=== PATIENT | female | born 1945 | race Caucasian/White ===

== ENCOUNTER 2016-04-22 10:44 | Inpatient (IN) | payer OTHER, MEDICARE ==
[~2016-04-22] VITALS: Ht 167.6 cm; Wt 87.9 kg
[2016-04-22 10:44] VITALS: BP 116/62; PULSE 57; RESP 18; O2SAT 98
[~2016-04-22 10:44] MED LIST: ASPI-973 PO; ATEN25TA PO; ATOR20TA PO; BUPR150T8 PO; CHOL10008 PO; FLUO20CA25 PO; HYDR25TA4 PO; LEVO100T6 PO; MULT-1018 PO
[2016-04-22] MEDS ORDERED: Ondansetron 2 mg/mL 2 mL Inj IVPUSH PRN ×2 (11:10→13:05)
--- NOTE | 2016-04-22 11:21 | ED.REPORT ---
HPI-Extremity Problem Lower Date of Service Apr 22, 2016 ED Provider: Ritesh Hernandez DO Pt is a 71 year old female who reports to the ER via EMS after a ground level fall complaining of left hip and thigh pain. 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 Pt was physically spinning around to try to regain her balance. After falling, she was able to sit up on the ground but was unable to stand due to pain in hip and leg. Pt described her leg as, "flopping around." Pt c/o associates a tingly sensation in her left foot. She rates her pain at 7/10 severity and describes the pain as "aching but no sharp pains." Nursing Notes Stated Complaint: GLF Chief Complaint: Extremity Trauma Nursing Notes Reviewed: Yes Allergies: Coded Allergies: No Known Drug Allergies (Verified Allergy, Unknown, 01/12/15) Scheduled Aspirin (Aspirin) 81 Mg Tablet 81 MG PO DAILY Atenolol (Atenolol) 25 Mg Tablet 12.5 MG PO DAILY Atorvastatin (Lipitor) 20 Mg Tablet 20 MG PO DAILY Bupropion ER (Wellbutrin SR) 150 Mg Tablet.er 150 MG PO BID Hydrochlorothiazide (Hydrochlorothiazide) 25 Mg Tablet 25 MG PO DAILY Levothyroxine (Levothyroxine) 100 Mcg Tablet 100 MCG PO DAILY Multivitamin (Multi Vitamin Daily) 1 Each Tablet 1 EACH PO DAILY Miscellaneous Medications Calcium Carbonate (Calcium) 600 Mg Tablet 600 MG PO Cholecalciferol (Vitamin D3) (Vitamin D3) 1,000 Unit Tab.chew 1,000 UNIT PO General Time Seen by MD: 11:00 Chief Complaint Leg injury left Hx Obtained From: Patient Arrived By: Ambulance Onset Occurred: Just prior to arrival Symptom Duration: Since onset Caused by: Fall on ground Context: Occurred at: Home injury Location: : Hip left: Thigh left Quality: Aching, Painful Severity: Current: Pain level 7 out of 10 Severity: Maximum: Severe Past Medical History Past Medical History High cholesterol, HTN Past Surgical History Left wrist surgery Family History Noncontributory Smoking History Current Every Day Smoker Social History Alcohol Use: 1-3 per week Drug Use: Denies drug use Other Social History: Good social support, Local resident Ambulatory Status Independent Review of Systems Musculoskeletal: Reports: Extremity pain (left leg ), Joint pain (left hip), Denies: Back pain, Neck pain Neurologic: Reports: Dizziness, Denies: Change LOC, Headache Complete sys rev & neg: except as marked. Cardiovascular: Denies: Chest pain GI: Denies: Abdominal pain Physical Exam Initial Vital Signs Vital Signs (First) Date Time Temp Pulse Resp B/P Pulse Ox O2 Delivery O2 Flow Rate FiO2 04/22/16 10:44 37.1 57 18 116/62 98 Room Air Initial VS: Reviewed General/Constitutional: Well-developed, Well-nourished Head / Eyes: Atraumatic, Normocephalic, PERRL ENT: Mucous membranes moist, Conjunctiva normal, No scleral icterus Neck: Supple, Non-tender, Full range of motion Respiratory: Breath sounds normal, Clear to auscultation, No respiratory distress Cardiovascular: Regular rate & rhythm, Heart sounds normal, Intact distal pulses Abdomen / GI: Soft, Non-tender, No guarding, No rebound, No distention Upper Extremities: Vascular intact, Neuro intact, No swelling, No tenderness Skin: Warm, Dry, No cyanosis Neurologic: Alert, Oriented, Nonfocal Psychiatric: Mood/affect normal, Behavior normal, Normal thought content Lower Extremity / Pelvis / MS: Neurologic intact, Vascular intact Lower Ext Brief Normals: Hip R exam normal, Thigh R exam normal, Knee R exam normal, Leg / calf R exam normal, Ankle R exam normal, Ankle L exam normal, Foot R exam normal, Foot L exam normal Left Hip: Positive: Tenderness present... left leg is shortened and externally rotatated Pain with axial rotation of left leg Pain with range of motion 2+DP pulses Ankle / Foot: Neurologic intact, Vascular intact Back: Inspection NL, Full range of motion, Painless range of motion, Non-tender , No midline vertebral tend, No paraspinal tenderness Interpretation & Diagnostics Lab Results Interpretation Result Diagram: 04/22/16 1230 04/22/16 1230 Test 04/22/16 12:30 White Blood Count 8.4th/mm3 (3.8-10.1) Red Blood Count 4.48mil/mm3 (3.90-5.20) Hemoglobin 13.6g/dL (12.0-15.6) Hematocrit 40.4% (35.0-46.0) Mean Corpuscular Volume 90.2fL (81-100) Mean Corpuscular Hemoglobin 30.4pg (27.0-35.0) Mean Corpuscular Hemoglobin Concent 33.7% (32.0-37.0) Red Cell Distribution Width 13.0% (12.3-15.4) Platelet Count 215bil/L (150-400) Neutrophils (%) (Auto) 78.4% (40-74) Lymphocytes (%) (Auto) 16.5% (14-46) Monocytes (%) (Auto) 4.0% (4-12) Eosinophils (%) (Auto) 0.7% (0-5) Basophils (%) (Auto) 0.2% (0-3) Sodium Level 143mEq/L (134-144) Potassium Level 4.1mEq/L (3.5-5.2) Chloride Level 106mEq/L (97-108) Carbon Dioxide Level 26mmol/L (18-29) Blood Urea Nitrogen 20mg/dL (8-27) Creatinine 0.88mg/dL (0.57-1.00) Estimat Glomerular Filtration Rate 91mL/min (>59) Glucose Level 100mg/dL (60-99) Calcium Level 9.4mg/dL (8.5-10.1) Magnesium Level 2.1mg/dL (1.6-2.6) Total Bilirubin 0.4mg/dL (0.0-1.2) Aspartate Amino Transf (AST/SGOT) 18U/L (0-50) Alanine Aminotransferase (ALT/SGPT) 18U/L (0-32) Alkaline Phosphatase 60U/L (25-165) Total Protein 6.3g/dL (6.4-8.4) Albumin 3.5g/dL (3.4-5.0) Hold Drake Top Tube Received (Received) ECG Interpretation ECG Interpretation: sinus bradycardia Time: 12:23 Interpreted by: ED physician X-Ray Chest Interpretation Chest Xray Interpretation: IMPRESSION: No acute or active disease is seen in the supine portable chest. Dictated by: Zoran Schmitz M.D. on 04/22/2016 at 12:27 Approved by: Zoran Schmitz M.D. on 04/22/2016 at 12:27 View: Portable Interpretation / Wet Read by: Interpret - Radiologist X-Ray Interpretation Xray Interpretation: IMPRESSION: Intertrochanteric fracture of the Left femur Dictated by: Zoran Schmitz M.D. on 04/22/2016 at 12:05 Approved by: Zoran Schmitz M.D. on 04/22/2016 at 12:05 X-Ray Ordered: Femur left Interpretation / Wet Read by: Interpret - Radiologist Re-Eval/Medical Decision Med Decision/Clinical Course Left intertrochanteric femur fracture. Neurovascularly intact. Will be admitted. Source of Hx: Old records Re-Evaluation/Progress : Time of Eval: 12:10 Re-Evaluation/Progress Note: Pt rechecked. Informed pt of diagnosis of fracture and need for admission. Pt understands and agrees with plan for admission. All questions addressed. Consultation #1: Referral / Consult Name: Eric Randhawa MD Consulted With: Surgeon Call Returned at: 12:15 Production Control Pegboard Clerk: Will see patient, Agrees with eval, Agrees with plan Consultation #2: Referral / Consult Name: Saurabh Jefferson MD Consulted With: Hospitalist Call Returned at: 12:57 Production Control Pegboard Clerk: Will see patient, Agrees with eval, Agrees with plan, Accepts admit Counseled Regarding: Diagnosis, Lab results, Need for admission Discharge & Departure Impression: Primary Impression: Fracture of left hip Encounter type: initial encounter Fracture type: closed Qualified Code: S72.002A - Fracture of unspecified part of neck of left femur, initial encounter for closed fracture Disposition: ADMITTED TO HOSPITAL Discharge Condition All VS Reviewed: Yes Condition: Stable Referrals: May Marks MD (PCP) Scribe Attestation Portion of this note were transcribed by Sarika Sibley and Mahi Cuevas. I, Dr. Sonya Azar, personally performed the history, physcial exam, and medical decision- making: I reviewed and confirmed the accuracy for the information in the transcribed note. Signed by: Mahi Cuevas and attila Courtney, 04/19/16 [id number]. copies to: May Marks MD, Timothy S DO Apr 22, 2016 11:21 MAHI CUEVAS Apr 22, 2016 11:59 Sarika Sibley Apr 22, 2016 12:44
[2016-04-22] MEDS ORDERED: 0.9% Sodium Chloride 1,000 ML IV ONE (12:01)
--- NOTE | 2016-04-22 12:07 | DRSVH ---
PROCEDURE: X-RAY LEFT HIP COMPLETE, MINIMUM TWO VIEWS ([id number]) INDICATIONS: trauma/fall/pain TECHNIQUE: 2 views of the hip were acquired. COMPARISON: None. FINDINGS: Bones: There is an intertrochanteric fracture of the left femur with some proximal displacement of a very small amount of the leg and external rotation of the leg. Soft tissues: No suspicious soft tissue calcifications or masses. IMPRESSION: Intertrochanteric fracture of the Left femur Dictated by: Zoran Schmitz M.D. on 04/22/2016 at 12:05 Approved by: Zoran Schmitz M.D. on 04/22/2016 at 12:05
--- NOTE | 2016-04-22 12:29 | DRSVH ---
PROCEDURE: X-RAY CHEST ONE VIEW, PORTABLE ([id number]) INDICATIONS: preop/fall at home/hip fracture TECHNIQUE: One view of the chest was acquired. COMPARISON: None. 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 Lungs and pleura: No pleural effusions or pneumothorax. Lungs are clear. Mediastinum: Mediastinal contours appear normal. Heart size is normal. Bones and chest wall: No suspicious bony lesions. Overlying soft tissues appear unremarkable. IMPRESSION: No acute or active disease is seen in the supine portable chest. Dictated by: Zoran Schmitz M.D. on 04/22/2016 at 12:27 Approved by: Zoran Schmitz M.D. on 04/22/2016 at 12:27
[2016-04-22 12:42] LABS: BASOPHILS % (AUTO) 0.2 % (0-3); EOSINOPHILS % (AUTO) 0.7 % (0-5); Mean Corpuscular Hemoglobin 30.4 pg (27.0-35.0); Mean Corpuscular Volume 90.2 fL (81-100); NEUTROPHILS % (AUTO) 78.4 % (40-74); Platelet Count 215 bil/L (150-400)
[2016-04-22 13:05] VITALS: BP 114/41; PULSE 52; RESP 20; O2SAT 95
[2016-04-22] MEDS ORDERED: hydrALAZINE 20 mg/mL Inj IV PRN (13:05)
[2016-04-22] MEDS ORDERED: Alum-Mag Hydrox-Simeth 30 mL Suspension PO PRN (13:05)
[2016-04-22 13:07] LABS: Magnesium 2.1 mg/dL (1.6-2.6)
--- NOTE | 2016-04-22 13:36 | PCM.HPMED ---
Subjective Date of Service Apr 22, 2016 Primary Provider: Admitting Physician: Saurabh Jefferson MD Primary Care Physician: May Marks MD Attending Physician: Saurabh Jefferson MD Admit Status: From the Emergency Department, Full Admit, Admit to [facility] Team, Non-Telemetry Chief Complaint: Left hip pain History of Present Illness: This is a 71-year-old female who was cleaning some travel up her driveway. 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 She injured her left hip was unable to get up. Her vertigo resolved. No trauma to the head. No other injuries including head pain neck or back pain. She was brought to the emergency department for evaluation and has a left femur intertrochanteric fracture. She denies a history of vertigo. She had no chest pain before during or after. She has not been ill recently. She has no history of osteoporosis from her report but does take vitamin D and calcium. She does have a history of a right wrist fracture. He is scheduled for operative Fracture tomorrow. Review of Systems: She denies any headache. No difficulty with hearing or rhinorrhea cough or sore throat. No fevers or chills. No chest pain palpitations or difficulty breathing. No recent constipation diarrhea blood products and hematuria dysuria. All other systems reviewed and otherwise negative except as noted in history of present illness Allergies Coded Allergies: No Known Drug Allergies (Verified Allergy, Unknown, 01/12/15) Home Medications Synthroid 25 mcgs, vitamin D daily, calcium daily, hydrochlorothiazide 25 mg daily, atenolol 12.5 mg daily PMH 1. Hypertension 2. Hypothyroidism Family History As for hypertension Social History Hx Alcohol Use: Yes ("glass of wine every other day") Hx Substance Use: No Hx Tobacco Use: Yes (6 - 8 CIGS A DAY) Smoking Status: Current Every Day Smoker Living Arrangement: with Family Exam Vital Signs Vital Sign - Last Date Time Temp Pulse Resp B/P Pulse Ox O2 Delivery O2 Flow Rate FiO2 04/22/16 13:05 52 20 114/41 95 Room Air 04/22/16 10:44 37.1 Exam Oriented, no acute distress. Normal skeletal Normal nose and ears Anicteric sclerae, symmetric pupils Oropharynx unremarkable, no droop. Fluent speech. Neck is supple, normal thyroid. No adenopathy. Lungs are clear , normal effort Heart is regular without murmur gallop or rub Abdomen soft nondistended without focal tenderness. Extremities are free of edema good pedal pulses. Joints not swollen or deformed Muscles with normal tone and strength. Cranial nerves are intact She has normal affect. Lab and Diagnostics Result Diagram: 04/22/16 1230 04/22/16 1230 X-Rays, CTs and MRIs Chest x-ray unremarkable Left hip x-ray reveals an intertrochanteric fracture of the femur. Assessment & Plan 1. Ground-level fall. Prior to admit. 2. Transient positional vertigo, prior to admit. Resolved 3. Left femur intertrochanteric fracture, POA. Sinus fluid resuscitation nothing by mouth after midnight. Allergies he has needed. Operative repair with open reduction and internal fixation tomorrow. DVT prophylaxis 4. Hypertension, essential. POA. Usual medications. 5. Hypothyroidism, POA. Usual medications. Patient's full resuscitation, confirmed today She is admitted to inpatient status with an estimated length of stay of 2 nights given the medical complexity of her case and the care required. Pain Evaluation: Adequate Pain Control Resuscitation Status: CPR: Attempt Resuscitation Time spent 40 minutes Saurabh Jefferson MD Apr 22, 2016 13:36
[2016-04-22] MEDS: fentaNYL-PF 50 mCg/mL 2 mL Inj IV PRN ×4 (13:58→23:01)
--- NOTE | 2016-04-22 14:40 | PCM.CONORT ---
Subjective Date of Surgery: Apr 22, 2016 Surgeon Admitting Provider:Saurabh Jefferson MD Attending Provider:Saurabh Jefferson MD Primary Care Physician:May Marks MD Other Provider: Reason for Consultation: Left hip pain Allergy Allergies: Coded Allergies: No Known Drug Allergies (Verified Allergy, Unknown, 01/12/15) Medications Blood Thinners: Aspirin Aspirin (Aspirin) 81 Mg Tablet 81 MG PO DAILY (Reported) Last Taken: Unknown Dose on 04/22/16 09 Atenolol (Atenolol) 25 Mg Tablet 12.5 MG PO DAILY (Reported) Last Taken: Unknown Dose on 04/22/16 09 Atorvastatin (Lipitor) 20 Mg Tablet 20 MG PO DAILY (Reported) Last Taken: Unknown Dose on 04/21/161999 Bupropion ER (Wellbutrin SR) 150 Mg Tablet.er 150 MG PO BID (Reported) Last Taken: Unknown Dose on 04/22/16 09 Calcium Carbonate (Calcium) 600 Mg Tablet 600 MG PO (Reported) Last Taken: Unknown Dose on 04/22/16 09 Cholecalciferol (Vitamin D3) ( Vitamin D3) 1,000 Unit Tab.chew 1,000 UNIT PO (Reported) Last Taken: Unknown Dose on 04/22/16 0900 Hydrochlorothiazide ( Hydrochlorothiazide) 25 Mg Tablet 25 MG PO DAILY (Reported) Last Taken: Unknown Dose on 04/22/16 0800 Levothyroxine (Levothyroxine) 100 Mcg Tablet 100 MCG PO DAILY (Reported) Last Taken: Unknown Dose on 04/22/16 0700 Multivitamin (Multi Vitamin Daily) 1 Each Tablet 1 EACH PO DAILY (Reported) Last Taken: Unknown Dose on 04/22/16 0900 Discontinued Medications Atenolol (Atenolol) 25 Mg Tablet 25 MG PO DAILY (Reported) Fluoxetine (Fluoxetine) 20 Mg Capsule 20 MG PO DAILY (Reported) History HEENT History: Denies:: Abnormal Airway Difficult Intubation Dysphagia Hearing Problem Hx of Heart Problems?: No Cardiovascular History: Positive for:: Hypertension Denies:: AICD Atrial Fibrillation Pacemaker Valvular Heart Disease Hx of Respiratory Problem?: No Respiratory History: Denies:: Asthma COPD Cough Hemoptysis Pneumonia Tuberculosis Neurological History: Denies:: CVA Hx of GI Problems?: Yes Gastrointestinal History: Denies:: Cirrhosis Diverticulitis Gastroesphageal Reflux Hiatal Hernia Rectal Bleeding Female Hx: Denies:: Currently Other History/Comment Debo Boateng is a 71-year-old female patient who presents to the ER for their left hip with ongoing symptoms. The patient states that their pain is a sharp in nature and mild/moderate in severity localized in the hip without radiation. This has been progressing over the past 1 day after she had a bout of vertigo while cleaning in her driveway. She reports no loss of consciousness but fell to the ground with subsequent left hip pain. Moreover, the pain is exacerbated by activities, especially with all movement. Rest seems to improve the symptoms. There is no reports numbness, tingling, or weakness to the affected distal lower extremity. There is no known history of hip problems as a child/ adolescent such as SCFE, Perthes, dysplasia, OI, or ligamentous laxity, or prior hip pain. The patient denies any fever, chills, nausea, vomiting, chest pain, shortness of breath, or calf tenderness. Work/hobbies/sports include: Accompanied by her son and Hx Surgeries?: Yes (LEFT WRIST SURGERY) Hx Any Other Health Problems?: No Hx Diabetes: No Hx Alcohol Use: Yes ("glass of wine every other day")Hx Substance Use: No Smoking Status: Current Every Day Smoker Have You Smoked inLast 12 mo: YesApprox How Many Cigarettes/day: 7 cigs/day Objective Exam Vital Signs & I/O Vital Sign- Last 8 Hours Date Time Temp Pulse Resp B/P Pulse Ox O2 Delivery O2 Flow Rate FiO2 04/22/16 13:05 52 20 114/41 95 Room Air 04/22/16 10:44 37.1 57 18 116/62 98 Room Air Lab & Micro Results Laboratory Tests Test 04/22/16 12:30 04/22/16 14:23 White Blood Count 8.4th/mm3 (3.8-10.1) Red Blood Count 4.48mil/mm3 (3.90-5.20) Hemoglobin 13.6g/dL (12.0-15.6) Hematocrit 40.4% (35.0-46.0) Mean Corpuscular Volume 90.2fL (81-100) Mean Corpuscular Hemoglobin 30.4pg (27.0-35.0) Mean Corpuscular Hemoglobin Concent 33.7% (32.0-37.0) Red Cell Distribution Width 13.0% (12.3-15.4) Platelet Count 215bil/L (150-400) Neutrophils (%) (Auto) 78.4% (40-74) Lymphocytes (%) (Auto) 16.5% (14-46) Monocytes (%) (Auto) 4.0% (4-12) Eosinophils (%) (Auto) 0.7% (0-5) Basophils (%) (Auto) 0.2% (0-3) Sodium Level 143mEq/L (134-144) Potassium Level 4.1mEq/L (3.5-5.2) Chloride Level 106mEq/L (97-108) Carbon Dioxide Level 26mmol/L (18-29) Blood Urea Nitrogen 20mg/dL (8-27) Creatinine 0.88mg/dL (0.57-1.00) Estimat Glomerular Filtration Rate 91mL/min (>59) Glucose Level 100mg/dL (60-99) Calcium Level 9.4mg/dL (8.5-10.1) Magnesium Level 2.1mg/dL (1.6-2.6) Total Bilirubin 0.4mg/dL (0.0-1.2) Aspartate Amino Transf (AST/SGOT) 18U/L (0-50) Alanine Aminotransferase (ALT/SGPT) 18U/L (0-32) Alkaline Phosphatase 60U/L (25-165) Total Protein 6.3g/dL (6.4-8.4) Albumin 3.5g/dL (3.4-5.0) Hold Drake Top Tube Received (Received) Hold Urine Received (Received) Result Diagram: 04/22/16 1230 04/22/16 1230 Review of Systems: Constitutional: Negative, except as otherwise mentioned in the history above. Ophthalmologic: Negative, except as otherwise mentioned in the history above. Cardiovascular: Negative, except as otherwise mentioned in the history above. Respiratory: Negative, except as otherwise mentioned in the history above. Gastrointestinal: Negative, except as otherwise mentioned in the history above. Genitourinary: Negative, except as otherwise mentioned in the history above. Musculoskeletal: Negative, except as otherwise mentioned in the history above. Neurological: Negative, except as otherwise mentioned in the history above. Psychiatric: Negative, except as otherwise mentioned in the history above. Hematologic/Lymphatic: Negative, except as otherwise mentioned in the history above. Allergic/Immunologic: Negative, except as otherwise mentioned in the history above. H&P Surgical Exam Exam Musculoskeletal: CONST: WD,WN, NAD, A+OX3 OCULAR: EOMI, no conjunctivitis/icterus ENT: no deformities, scars or lesions CARDIAC: Pulse is regular. No cyanosis,clubbing,edema RESP: regular,unlabored MSK: normal light touch SPN/DPN/TN distributions. 4+/5 DF/PF/Inv/Ev, 2+ DP Left HIP - scars.+ swelling, - erythema - atrophy or asymmetry. TTP GT, alignment Leg is shortened, external rotated ROM logroll-painful Strength Deferred Negative Homans Additional Information X-rays of the left hip demonstrate Displaced intertrochanteric left hip fracture H&P Preop Plan Impression left displaced intertrochanteric hip fracture Problems: Risks & Benefits * We have reviewed the risks and benefits as well as the alternatives to surgery. All questions were answered to the patient's satisfaction and a counseling note to that effect. The patient has provided informed consent. * I have counseled the patient regarding the deleterious effects that smoking during the perioperative period can have upon wound healing, infection rates, and the overall rate of complications. Plan plan for left hip CRIMN tomorrow NPO after midnight medical management per primary appreciate medical optimization for surgery on 04/23/16 pain meds as needed NWB LLE DVT prophylaxis with PERLITA/SCDs please keep elevated please call with questions Please keep the affected extremity elevated when possible. You may use ice and/or heat as needed for comfort. All questions and concerns were addressed. Please feel free to call with any further questions, comments, and/or concerns. Eric Randhawa MD Apr 22, 2016 14:40
[2016-04-22] MEDS: 0.9% Sodium Chloride 1,000 ML IV SCH ×2 (14:47→21:02)
[2016-04-22] MEDS ORDERED: ATEN25TA PO (14:48)
[2016-04-22] MEDS ORDERED: CALC600T12 PO (14:51)
[2016-04-22 15:01] VITALS: BP 94/58; PULSE 52; RESP 19; O2SAT 96
[2016-04-22] MEDS: Heparin 5,000 Unit/mL Inj SUBQ SCH (16:57)
[2016-04-22 17:07] LABS: APPEARANCE,URINE CLEAR (CLEAR,HAZY); COLOR,URINE YELLOW (YELLOW); OCCULT BLOOD,URINE TRACE (NEGATIVE); PH,URINE 5.5 (5.0-8.0); UROBILINOGEN,URINE NORMAL (NORMAL)
--- NOTE | 2016-04-22 19:20 | NUR ---
Arrival Pt came from ED, she is alert and oriented, she had fallen in her driveway earlier today, when she was getting the Saturday paper, pt has broken her left hip. She is to have surgery tomorrow morning so NPO after midnight.
[2016-04-22 20:26] VITALS: BP 99/60; PULSE 52; RESP 19; O2SAT 90
[2016-04-22] MEDS ORDERED: HYDROmorphone 2 mg/mL Inj IVPUSH PRN (23:40)
[2016-04-23] VITALS (10 sets, daily range): BP systolic 116–140; BP diastolic 50–74; PULSE 64–85; RESP 16–20; O2SAT 91–98
[2016-04-23] MEDS ORDERED: HYDROmorphone 1 mg/mL Inj ONE ×4 (01:10→08:59)
[2016-04-23] MEDS: Heparin 5,000 Unit/mL Inj SUBQ SCH ×3 (01:15→16:30)
[2016-04-23] MEDS: HYDROmorphone 2 mg/mL Inj IVPUSH PRN ×3 (01:16→06:11)
--- NOTE | 2016-04-23 05:22 | NUR ---
Pain pain not well controlled with Fentanyl, pt reported that it seemed to work for awhile but not enough to allow for sleep; morphine had been tried in ED without good result. Obtained new order for 1-2 mg Dilaudid IV Q 2hours, 1 mg appears to provide adequate relief for sleep, lasted 2 hours. Pt remains alert and respirations >14/ minute. NPO since midnight for expected surgery. Hourly rounding ongoing.
[2016-04-23] MEDS: 0.9% Sodium Chloride 1,000 ML IV SCH ×4 (06:12→20:46)
[2016-04-23 06:56] LABS: BASOPHILS % (AUTO) 0.2 % (0-3); EOSINOPHILS % (AUTO) 0.6 % (0-5); MONOCYTES % (AUTO) 5.9 % (4-12); Mean Corpuscular Hemoglobin 30.1 pg (27.0-35.0); Platelet Count 182 bil/L (150-400)
[2016-04-23] MEDS: buPROPion SR 150 mg ER12 Tablet PO SCH ×2 (08:30→18:11)
[2016-04-23] MEDS ORDERED: fentaNYL-PF 50 mCg/mL 2 mL Inj ONE (09:03)
[2016-04-23] MEDS ORDERED: HYDROmorphone 2 mg/mL Inj ONE (09:03)
[2016-04-23] MEDS: HYDROmorphone 1 mg/mL Inj IVPUSH PRN ×2 (11:19→17:11)
[2016-04-23] MEDS ORDERED: Lactated Ringer's 1,000 ML IV ONE ×2 (12:18→13:36)
--- NOTE | 2016-04-23 12:38 | NUR ---
Off unit for surgery Pt to OR at 1237. Dr. Randhawa at bedside signing consent and answering family's questions. Pain well controlled at this time. Denies nausea.
--- NOTE | 2016-04-23 13:26 | PCM.HPANE ---
Patient Data Date of Service: Apr 23, 2016 Surgeon Admitting Provider:Saurabh Jefferson MD Attending Provider:Saurabh Jefferson MD Primary Care Physician:May Marks MD Other Provider: Reason for Visit Lt Hip Fx Ht/WT & BMI Height (Feet): 5 Height (Inches): 6.00 Weight (Kilograms): 87.900 Body Mass Index 31.14 Allergies Coded Allergies: No Known Drug Allergies (Verified Allergy, Unknown, 01/12/15) Past Anesthesia History Anesthesia History: Denies:: Abnormal Airway, Anesthesia Reactions, Difficult Intubation Diabetes History Hx Diabetes?: No MRSA MRSA: No Medications Blood Thinner: Aspirin Hypertension Medication: Yes Home Meds Incl Beta Zander: Yes Date Beta Zander Taken: Apr 22, 2016 Time Beta Zander Taken: 10:00 Reported Medications Calcium Carbonate (Calcium)600 Mg Morega248 Mg PO 04/22/16 Atenolol 25 Mg Mtgynn59.5 Mg PO DAILY #30 TABLET Ref 0 04/22/16 Bupropion ER (Wellbutrin SR)150 Mg Tablet.er150 Mg PO BID Ref 0 01/11/15 Cholecalciferol (Vitamin D3) (Vitamin D3)1,000 Unit Tab.chew1,000 Unit PO 01/11/15 Multivitamin (Multi Vitamin Daily)1 Each Tablet1 Each PO DAILY 30 Days Ref 0 01/11/15 Levothyroxine 100 Mcg Biccgh656 Mcg PO DAILY For Thyroid Replacement Ref 0 01/11/15 Hydrochlorothiazide 25 Mg Yjutok40 Mg PO DAILY 30 Days Ref 0 01/11/15 Aspirin 81 Mg Rdkfln87 Mg PO DAILY Ref 0 01/11/15 Atorvastatin (Lipitor)20 Mg Glupba85 Mg PO DAILY Ref 0 01/11/15 Discontinued Reported Medications Fluoxetine 20 Mg Pmrpycv87 Mg PO DAILY Ref 0 01/11/15 Atenolol 25 Mg Vmobnw77 Mg PO DAILY #30 TABLET Ref 0 01/11/15 History History of ENT Problems?: No HEENT History: Positive for:: Glaucoma Denies:: Abnormal Airway Cataracts Difficult Intubation Dysphagia Hearing Problem Sinus Problem Hx of Heart Problems?: Yes Cardiovascular History: Positive for:: Hypertension Denies:: AICD Atrial Fibrillation Cardiac Surgery Chest Pain Congestive Heart Failure Edema Heart Murmur Irregular Heartbeat Pacemaker Thrombophlebitis Valvular Heart Disease Hx of Respiratory Problem?: Yes (smoker 7 cigarettes) Respiratory History: Denies:: Asthma COPD Chest Surgery Cough Dyspnea Emphysema Hemoptysis Pneumonia Tuberculosis Hx Neurologic Problems?: No Neurological History: Denies:: Alzheimer's Disease CVA Dementia Dizziness Headaches Parkinson's Disease Seizures Hx of GI Problems?: No Gastrointestinal History: Denies:: Cirrhosis Diverticulitis Gastroesphageal Reflux Gastrointestinal Bleeding Heartburn Hepatitis Hiatal Hernia Rectal Bleeding Hx of Problems?: No Genitourinary History: Denies:: HX of Hemodialysis Kidney Stones Urinary Tract Infection HX of Peritoneal Dialysis: No Female Hx: Denies:: Currently Problems with Breasts? Hx Musculoskeletal Problems?: No Musculoskeletal History: Denies:: Back Injury Joint Replacement Musculoskeletal Trauma Hx of Psycho/Social Problems?: No Psycho Social History: Denies:: Anxiety Bipolar Disorder Hx Depression Suicide Attempt Hx Surgeries?: No Hx Any Other Health Problems?: Yes Other History: Positive for:: Thyroid Disease Denies:: Cancer History Blood Transfusions: Positive for:: Accept Blood Products? Denies:: Blood Transfusions Hx Diabetes: No Hx Alcohol Use: Yes (Glass of red wine every other night)Hx Substance Use: No Smoking Status: Current Every Day Smoker Have You Smoked inLast 12 mo: YesApprox How Many Cigarettes/day: 7 Stop/Bang Treated for Sleep Apnea?: No Do You Have a CPAP Machine?: No S-Snoring: Do You Snore Loudly: No T-Tired: feel tired, fatigued: No O-Obsered: Observed not breath: No P-Blood Pressure: treated: Yes B- Body Mass Index > 35 kg/m2: No A- Age over 50: Yes N- Neck Large Circumference: No G- Gender Male: No AMRIANA Total Score: 1 Risk Assessment Category Category 1A: Patient has history of documented sleep apnea, and HAS NOT received any narcotic, sedative or anesthesia administration during this stay. Category 1B: Patient has history of documented sleep apnea, and HAS received any narcotic , sedative or anesthesia administration during this stay Category 2: Patient has SUSPECTED Obstructive Sleep Apnea, and HAS received any narcotic , sedative or anesthesia administration during this stay. Category 3: Patient has SUSPECTED Obstructive Sleep Apnea and HAS NOT received narcotic, sedative or anesthesia administration during this stay. Category 4: Outpatient in Procedural Areas with known sleep apnea or who screen positive for High Risk via the STOP/BANG questionnaire. Exam Exam Vital Signs Vital Signs Date Time Temp Pulse Resp B/P Pulse Ox O2 Delivery O2 Flow Rate FiO2 04/23/16 09:52 37.1 65 18 118/65 92 Nasal Cannula 2.00 04/23/16 05:43 37.6 77 18 116/63 92 Nasal Cannula 2.00 General Appearance: Alert, Oriented X3, Cooperative HEENT/AIRWAY: MP 2 Lungs: Clear to Auscultation Heart: Exam Unremarkable Meds/Labs/Diagnostics Admission Meds Current Medications Heparin Sodium (Porcine) (Heparin Inj) 5,000 unit Q8 SUBQ Last administered on 04/23/16 01:15; Start 04/22/16 at 16:30 Hydromorphone HCl (Dilaudid Inj) 1 mg STK-MED ONCE .ROUTE Last administered on 04/23/16 09:02; Start 04/23/16 at 08:59; Stop 04/23/16 at 09:00; Status DC Labs Test 04/22/16 12:30 04/22/16 14:15 04/22/16 14:23 04/23/16 06:05 Magnesium Level 2.1mg/dL (1.6-2.6) Hold Drake Top Tube Received (Received) Urine Color Yellow (YELLOW) Urine Appearance Clear (CLEAR,HAZY) Urine pH 5.5 (5.0-8.0) Urine Specific [place] 1.020 (1.003-1.035) Urine Protein Negativemg/dL (NEG,TRACE) Urine Glucose (UA) Negativemg/dL (NEGATIVE) Urine Ketones Negativemg/dL (NEGATIVE) Urine Occult Blood Trace (NEGATIVE) Urine Nitrite Negative (NEGATIVE) Urine Bilirubin Negative (NEGATIVE) Urine Urobilinogen Normalmg/dL (NORMAL) Urine Leukocyte Esterase Negative (NEGATIVE) Urine RBC 0-2/hpf (0-2) Urine WBC 0-5/hpf (0-5) Urine Epithelial Cells Occasional/hpf (NONE-MOD) Urine Crystals None seen (NONE SEEN) Urine Bacteria None/hpf (NONE-FEW) Urine Hyaline Casts None/lpf (NONE) Urine Granular Casts None seen (NONE SEEN) Urine Waxy Casts None seen (NONE SEEN) Urine Red Blood Cell Casts None seen (NONE SEEN) Urine White Blood Cell Casts None seen (NONE SEEN) Urine Mucus None seen (None Seen) Urine Trichomonas None seen (NONE SEEN) Urine Yeast None (NONE SEEN) Urinalysis Comment None Urine Culture Reflexed Not indicated Hold Urine Received (Received) White Blood Count 6.6th/mm3 (3.8-10.1) Red Blood Count 3.99mil/mm3 (3.90-5.20) Hemoglobin 12.0g/dL (12.0-15.6) Hematocrit 36.3% (35.0-46.0) Mean Corpuscular Volume 91.0fL (81-100) Mean Corpuscular Hemoglobin 30.1pg (27.0-35.0) Mean Corpuscular Hemoglobin Concent 33.1% (32.0-37.0) Red Cell Distribution Width 13.1% (12.3-15.4) Platelet Count 182bil/L (150-400) Neutrophils (%) (Auto) 68.0% (40-74) Lymphocytes (%) (Auto) 25.1% (14-46) Monocytes (%) (Auto) 5.9% (4-12) Eosinophils (%) (Auto) 0.6% (0-5) Basophils (%) (Auto) 0.2% (0-3) Sodium Level 137mEq/L (134-144) Potassium Level 3.8mEq/L (3.5-5.2) Chloride Level 100mEq/L (97-108) Carbon Dioxide Level 26mmol/L (18-29) Blood Urea Nitrogen 15mg/dL (8-27) Creatinine 0.79mg/dL (0.57-1.00) Estimat Glomerular Filtration Rate 103mL/min (>59) Glucose Level 109mg/dL (60-99) Calcium Level 8.5mg/dL (8.5-10.1) Total Bilirubin 0.5mg/dL (0.0-1.2) Aspartate Amino Transf (AST/SGOT) 14U/L (0-50) Alanine Aminotransferase (ALT/SGPT) 15U/L (0-32) Alkaline Phosphatase 53U/L (25-165) Total Protein 5.5g/dL (6.4-8.4) Albumin 3.4g/dL (3.4-5.0) Plan Impression Patient chart reviewed, patient interviewed and anesthestic plan with risks, benefits, and alternatives discussed, and informed consent obtained. ASA Physical Status: ASA2 Mod Systemic Disease Anesthetic Plan: SAB Bene/Risks/Altern/Consents: Yes HP Complete Prior to Induction: Yes Robbie Fernandez MD Apr 23, 2016 13:04
[2016-04-23] MEDS ORDERED: Propofol 10,000 mCg/mL 20 mL Inj ONE (13:48)
[2016-04-23] MEDS ORDERED: Ondansetron 2 mg/mL 2 mL Inj ONE (13:48)
[2016-04-23] MEDS ORDERED: Labetalol 5 mg/mL 20 mL Inj ONE (13:48)
[2016-04-23] MEDS ORDERED: Albuterol HFA 60 Puff 8 Gm Inhaler INHALATION ONE (13:48)
[2016-04-23] MEDS ORDERED: EPHEDrine/NS 5 mg/mL 5 mL Syringe ONE (13:48)
[2016-04-23] MEDS ORDERED: Glycopyrrolate 0.2 mg/mL 5 mL Inj ONE (13:48)
[2016-04-23] MEDS ORDERED: Phenylephrine/NS 100 mCg/mL 10 mL Syringe IVPUSH ONE (13:48)
--- NOTE | 2016-04-23 14:45 | NUR ---
Social Work Initial Assessment Attempted: SW attempted to meet with patient at bedside to conduct initial assessment. Patient currently off unit in surgery at this time. Patient is a 71 year old male admitted on 04/22/16 for Lt hip fracture. Patient payer as [employer] and Medicare. Patient listed PCP as MD Marks. Following surgery, SW to follow for discharge related needs. Possible SNF placement following surgery may benefit patient. SW to follow. PLAN: Discharge plan in progress. Possible SNF, pending clinical course and initial assessment Maryjane PRECIADO
[2016-04-23] MEDS ORDERED: Bacitracin 50,000 unit Inj IRRIGATION ONE (14:55)
[2016-04-23] MEDS ORDERED: Ropivacaine-PF 0.5% 30 mL Inj INJ ONE (14:56)
[2016-04-23] MEDS ORDERED: Magnesium Hydroxide 10 mL Oral Concentration PO PRN (15:40)
[2016-04-23] MEDS ORDERED: HYDROmorphone 1 mg/mL Inj IVPUSH PRN ×2 (15:40→16:30)
[2016-04-23] MEDS ORDERED: Ondansetron 2 mg/mL 2 mL Inj IVPUSH PRN ×2 (15:40→16:30)
[2016-04-23] MEDS ORDERED: Sodium Biphos-Phos 133 mL Enema RECTAL PRN (15:40)
[2016-04-23] MEDS ORDERED: HYDROcodone-APAP 5-325 mg Tablet PO PRN (15:40)
[2016-04-23] MEDS ORDERED: Polyethylene Glycol (PEG) 17 Gm Powder PO PRN (15:40)
[2016-04-23] MEDS ORDERED: diphenhydrAMINE 25 mg Capsule PO PRN (15:40)
--- NOTE | 2016-04-23 15:52 | PCM.ORTHOP ---
Orthopedic Operative Report Date of Service: Apr 23, 2016 Pre Operative Diagnosis Left hip fracture Post Operative Diagnosis Left hip fracture Procedure Left hip closed reduction intramedullary nailing Surgeon Surgeon: Eric Randhawa Assistants: Nurys Murry Indication for Procedure Left hip fracture Findings Left Intertrochanteric hip fracture with subtrochanteric extension Details of Procedure Implant: Biomet Affixus Nail 11 mm x 330 mm Indications: This is Debo Boateng who is status post left intertrochanteric hip fracture with subtrochanteric extension. The risks versus benefits of open reduction and internal fixation were discussed with the patient in detail. The patient voiced understanding of the risks and agreed to proceed. The risks discussed were pain, bleeding, infection, damage to neurovascular structures, failure of procedure, need for further procedures, loss of limb function, loss of limb, heart attack, stroke, and . Verbal and written consent were obtained. Description of Operation: The patient was brought to the operating room. Patient name and surgical site were confirmed. Preoperative antibiotics were given. General anesthesia was administered. The patient was placed supine on the fracture table in the standard fashion. All bony prominences were well padded. Traction was applied to the operative leg and the fracture was closed reduced under C-arm guidance. The leg and hip were then prepped and draped in the usual sterile fashion. A small longitudinal incision was made proximal to the greater trochanter. Subcutaneous dissection was bluntly performed down to the tip of the greater trochanter. A 3.2 mm guide pin was then placed through the tip of the greater trochanter and into the femoral canal under fluoroscopic guidance. This was checked in both AP and lateral views. This pin was then over-reamed with a 17 mm reamer. The ball tipped guide wire was placed into the medullary canal and advanced into the center of the distal metaphysis. The guide wire was then over-reamed in 0.5 mm increments until bony chatter was achieved at the isthmus. A tire gauge was used to determine the length of the nail. The nail implant was loaded onto the insertion jig and then gently malleted into position over the guide wire. The fracture was well reduced as confirmed with C-arm in AP and lateral views. The guide was removed. The guide pin for the hip screw was inserted to a point within 25 mm tip-to-apex distance on AP and lateral views. The size was measured at 100 mm. A hip screw size was selected along with a 100 mm compression screw. The lateral cortex was drilled for the compression screw. The guide pin was then overdrilled and the hip screw was inserted with clear compression at the fracture once the compression screw inserted and engaged. The traction was removed and orthogonal views with fluoroscopy determined reduction of our fracture with appropriate placement of hip screw centered with a tip-to-apex distance less than 25 mm. The distal interlocking screw was then inserted in the standard fashion using the perfect [place] technique under C-arm guidance. All wounds were thoroughly irrigated by bulb irrigation. Hemostasis was obtained with electrocautery. The fascia was closed with 0 Vicryl suture. The subcutaneous space was closed with interrupted 2-0 Vicryl suture. The skin was closed with interrupted george. Hard copy radiographs confirmed adequate reduction and placement of hardware. The patient was extubated without difficulty and transferred to the PACU in stable condition. I was present and scrubbed for the entire procedure. METER MECHANIC SURGEON: During the operation, the services of physician surgical nurse were medically indicated and necessary to provide exposure of the operative site for the surgical procedure and to maintain the limb in a proper position to carry out the operation safely and efficiently. Without the qualified licensed nursing assistant being present, it would have extended the operative procedure and made the procedure technically more difficult to perform. You may partial weightbear at 25%. PT/OT will be ordered. Return to clinic in 2 weeks with a PA with 2 view x-rays and staple/suture removal with Steri-Strips application. You may get your wound wet at that time. You may advance weightbearing to 50% if you are able to tolerate and follow-up with me in 4 weeks thereafter with additional x-rays 2 views. We will progress weightbearing to full once radiographic healing noted at 6-10 weeks. Please keep the affected extremity elevated when possible. You may use ice and/or heat as needed for comfort. All questions and concerns were addressed. Please feel free to call with any further questions, comments, and/or concerns. Grafts, Implants: Implants-See Implant Record Complications There were no periprocedural complications identified. Condition Stable Anesthetic Administered: GA Catheters: None Output, Estimated Blood Loss: 20 Blood Admin during surgery: No Surgical Cast or Splint: Other Surgical Specimen Removed: No Specimen sent to Pathology: No copies to: Eric Randhawa MD, Christopher L MD Apr 23, 2016 15:52
--- NOTE | 2016-04-23 15:54 | PCM.ANEP2 ---
Post Anesthesia Evaluation ASA/CMS Post Anesthesia Date of Service: Apr 23, 2016 VS in Patient's Normal Range?: Yes Resp Stable; Airway Patent?: Yes CV Function & Hydration Stable: Yes Mental Status Recovered?: Yes Pain control Satisfactory?: Yes N/V Control Satisfactory?: Yes Robbie Fernandez MD Apr 23, 2016 15:54
--- NOTE | 2016-04-23 15:54 | PCM.ANEP1 ---
Post Anesthesia Phase 1 PACU Phase 1 Assessment Date of Service: Apr 23, 2016 Vital Signs Vital Signs Date Time Temp Pulse Resp B/P Pulse Ox O2 Delivery O2 Flow Rate FiO2 04/23/16 09:52 37.1 65 18 118/65 92 Nasal Cannula 2.00 Anesthetic Administered: GA Level of Alertness: Sleepy, easy to arouse ROBLERO's with Equal Strength: Yes Pain: Yes (low but low) Nausea or Vomiting: No Oxygen Delivery: Simple Mask Summary During removal of LMA, noted significant loose front lower incisors. No evidence of recent trauma and LMA insertion/removal were without trauma or resistance. When patient had recovered from anesthesia, she commented that her lower teeth were chronically loose. I don't think that any trauma was done with LMA insertion/removal and that this is likely her baseline, though see denied loose teeth during my preop history. She does have significant tooth decay and evidence of multiple lost teeth. Robbie Fernandez MD Apr 23, 2016 15:54
[2016-04-23] MEDS ORDERED: Lactated Ringer's 1,000 ML IV SCH (16:27)
[2016-04-23] MEDS ORDERED: Lactated Ringer's 500 ML IV PRN (16:27)
[2016-04-23] MEDS ORDERED: fentaNYL-PF 50 mCg/mL 2 mL Inj IVPUSH PRN (16:30)
[2016-04-23] MEDS ORDERED: Labetalol 5 mg/mL 4 mL Inj IV PRN (16:30)
[2016-04-23] MEDS ORDERED: Atropine 0.4 mg/mL Inj IVPUSH PRN (16:30)
[2016-04-23] MEDS ORDERED: MetoCLOpramide 5 mg/mL 2 mL Inj IVPUSH PRN (16:30)
[2016-04-23] MEDS ORDERED: EPHEDrine Sulfate 50 mg/mL Inj IVPUSH PRN (16:30)
[2016-04-23] MEDS ORDERED: hydrALAZINE 20 mg/mL Inj IVPUSH PRN (16:30)
[2016-04-23] MEDS ORDERED: Phenylephrine 10,000 mCg/mL Inj IVPUSH PRN (16:30)
--- NOTE | 2016-04-23 17:26 | PCM.PNMED ---
Subjective Date of Service Apr 23, 2016 Subjective reports left hip pain. denies any other issues/complaints Exam Vital Signs Vital Sign - Last Date Time Temp Pulse Resp B/P Pulse Ox O2 Delivery O2 Flow Rate FiO2 04/23/16 16:05 85 20 130/68 91 Nasal Cannula 3 04/23/16 15:36 36.9 Intake and Output 04/22/16 04/22/16 04/23/16 Cumulative From/Thru 15:00 23:00 07:00 04/22/16 10:44 - 04/23/16 06:22 Intake Total 1000 ml 400 ml 1666 ml 3066 ml Output Total 550 ml 550 ml 1100 ml Balance 1000 ml -150 ml 1116 ml 1966 ml Intake Oral 400 ml 200 ml 600 ml IV Total 1000 ml 1466 ml 2466 ml Output Urine Total 550 ml 550 ml 1100 ml # Bowel Movements 0 0 General: Alert, Cooperative, No Acute Distress Eyes: Scleral Anicteric Mouth: Mucous Membr Moist/[place] Neck: Supple Chest & Lungs: Chest Wall Normal, Clear to auscultation & percussion Cardiovascular: Regular Rate/Rhythm Abdomen: Non-tender, Non-distended, Normoactive bowel tones, Soft Extremities: No cyanosis/clubbing/edma bilat Neurological: Grossly Neurologically Intact, Normal Speech IVs and Medications Medications Reviewed: Medications were reviewed in detail Lab and Diagnostics Result Diagram: 04/23/1660404/23/16604 X-Rays, CTs and MRIs Chest x-ray unremarkable Left hip x-ray reveals an intertrochanteric fracture of the femur. Assessment & Plan 71-year-old female with history of HTN and hypothyroidism who was cleaning her driveway. 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 She injured her left hip was unable to get up. # Acute ground-level fall with resulting acute left femur intertrochanteric fracture. poa - appreciate ortho consult. will f/u w/ recs - plan for surgery today - c/w supportive care # Transient positional vertigo, prior to admit. Resolved - PT post surgery # Hypertension, essential, chronic. stable - c/w home dose Atenolol - hold HCTZ for now - Hydralazine prn # Hypothyroidism. chronic - c/w home med # Depression. chronic. stable - c/w home dose Wellbutrin Dispo: 3-4 days VTE Mechanical Devices: Intermittant Pneumatic CD Resuscitation Status: CPR: Attempt Resuscitation Quoc Mayer Apr 23, 2016 17:26
--- NOTE | 2016-04-23 18:44 | NUR ---
Return from OR to 1026 Pt returned from OR at 1630, alert and oriented but tearful with no complaints other than "feeling wierd". Ortho extremity is warm and peripheral pulses palpable; neuro checks unremarkable. Family at bedside. Pain 6/10 mostly in her low back, medicated with 1mg of Dilaudid and placed on CPOx for safety. SCD's on. No drains, lloyd patent and draining to gravity. Island dressing x2 on L hip are CDI with no drainage. Pt tolerating PO intake and denies nausea. Report taken from NICK Ramey.
[2016-04-23] MEDS: Senna-Docusate 8.6-50 mg Tablet PO SCH (20:55)
[2016-04-24 00:15] VITALS: BP 138/77; PULSE 73; RESP 20; O2SAT 94
[2016-04-24] MEDS: Heparin 5,000 Unit/mL Inj SUBQ SCH (00:21)
[2016-04-24] MEDS: 0.9% Sodium Chloride 1,000 ML IV SCH (05:04)
--- NOTE | 2016-04-24 05:23 | NUR ---
Pain Pain well controlled with 5 mg oxycodone prn. Dressings dry and intact, lloyd patent, IVF infusing. Denies nausea, tolerated dinner well. Hourly rounding ongoing.
[2016-04-24 06:01] VITALS: BP 148/81; PULSE 98; RESP 20; O2SAT 94
[2016-04-24 07:23] LABS: BASOPHILS % (AUTO) 0.1 % (0-3); EOSINOPHILS % (AUTO) 0 % (0-5); MONOCYTES % (AUTO) 8.1 % (4-12); Mean Corpuscular Hemoglobin 30.4 pg (27.0-35.0); Mean Corpuscular Volume 90.1 fL (81-100); NEUTROPHILS % (AUTO) 75.6 % (40-74); Platelet Count 166 bil/L (150-400)
[2016-04-24] MEDS: Senna-Docusate 8.6-50 mg Tablet PO SCH ×2 (08:43→21:10)
[2016-04-24] MEDS: buPROPion SR 150 mg ER12 Tablet PO SCH ×2 (08:44→21:09)
--- NOTE | 2016-04-24 10:11 | PCM.PNORTH ---
Subjective Date of Service: Apr 24, 2016 Visit Information: Reason for Visit Lt Hip Fx Surgery/Surgery Date Post-Op Day # 1 Date of Admission: Apr 22, 2016 at 13:07 Hospital Day # Subjective Patient states she is feeling less pain today than yesterday. She had just finished physical therapy and said her pain level was higher because of the activity. She states she thinks she did very well with physical therapy. Her plan at this time is to go home or inpatient rehab. Postop General: No Complaints, No Shortness of Breath, No Chest Pain Pain Management: PO Objective Exam Objective Patient sitting up in bed Vital Signs and I/O Vital Sign - Last Date Time Temp Pulse Resp B/P Pulse Ox O2 Delivery O2 Flow Rate FiO2 04/24/16 06:01 37.2 98 20 148/81 94 Nasal Cannula 2.00 Intake and Output 04/23/16 04/23/16 04/24/16 Cumulative From/Thru 14:59 22:59 06:59 04/22/16 10:44 - 04/24/16 06:49 Intake Total 800 ml 660 ml 1355 ml 5881 ml Output Total 100 ml 530 ml 450 ml 2180 ml Balance 700 ml 130 ml 905 ml 3701 ml Intake Oral 560 ml 200 ml 1360 ml IV Total 800 ml 100 ml 1155 ml 4521 ml Output Urine Total 100 ml 410 ml 450 ml 2060 ml Estimated Blood Loss 120 ml 120 ml # Bowel Movements 0 Lab & Micro Results Laboratory Tests Test 04/24/16 06:30 White Blood Count 7.6th/mm3 (3.8-10.1) Red Blood Count 3.55mil/mm3 (3.90-5.20) Hemoglobin 10.8g/dL (12.0-15.6) Hematocrit 32.0% (35.0-46.0) Mean Corpuscular Volume 90.1fL (81-100) Mean Corpuscular Hemoglobin 30.4pg (27.0-35.0) Mean Corpuscular Hemoglobin Concent 33.8% (32.0-37.0) Red Cell Distribution Width 12.6% (12.3-15.4) Platelet Count 166bil/L (150-400) Neutrophils (%) (Auto) 75.6% (40-74) Lymphocytes (%) (Auto) 16.1% (14-46) Monocytes (%) (Auto) 8.1% (4-12) Eosinophils (%) (Auto) 0% (0-5) Basophils (%) (Auto) 0.1% (0-3) Result Diagram: 04/24/16 0604/23/16 06 General Appearance: Alert, Oriented X3, Cooperative, No Acute Distress Extremities: Distal Pulses Palpable, No Compartment Syndrom Noted, Thigh & Calf Soft/Nontender Postop Sensory Motor: Distal Motor Intact, Movement in Toes, Distal Sensation Intact, NVI Distally SURGICAL WOUND : Wound Location/Description Perioperative dressings clean dry and intact. Incision General Appearance: [place], No Direct Observation Activity: Ambulate with PT (touchdown weightbearing with a front-wheeled walker ) Catheters: None Assessment & Plan Impression POD#1 Left hip IM nail. Problems: Plan Weightbearing: Nonweightbearing with front-wheeled walker DVT prophylaxis:Xarelto 10 mg daily 35 days Physical therapy for transfers, progressive ambulation, strengthening Wound care: Perioperative dressings will be changed to Island dressing tomorrow by PA Analgesia: Continue oral pain management Discharge plan: Discharge home vs rehab in 1-2 days. Follow-up plan: In 2 weeks at [facility] with Dr. Randhawa for wound check and xrays. Then at 6 weeks with a PA. VTE Prophylaxis: Other (Xarelto 10mg QD x35 days) Resuscitation Status: CPR: Attempt Resuscitation Nurys Murry PA-C Apr 24, 2016 10:11
--- NOTE | 2016-04-24 10:27 | DRSVH ---
PROCEDURE: X-RAY SURGICAL FLUORO C-ARM >1 HR INDICATIONS: C-ARM ASSISTED LEFT HIP ORIF COMPARISON: [facility], CR, XR HIP 2VW LT, 04/22/2016, nito alignment as is the 11:09 FINDINGS: 6 images are reviewed, establishing normal alignment after placement of long medullary diana with a single transverse fixation screw and distally and a dynamic hip screw axially oriented to the hip establishing normal anatomic alignment across the intertrochanteric fracture. IMPRESSION: Normal alignment established after ORIF of intertrochanteric left hip fracture. Dictated by: Robbie Andrew M.D. on 04/24/2016 at 10:25 Approved by: Robbie Andrew M.D. on 04/24/2016 at 10:25
[2016-04-24 10:51] VITALS: BP 118/71; PULSE 75; RESP 18; O2SAT 94
[2016-04-24 11:34] VITALS: O2SAT 93
--- NOTE | 2016-04-24 12:42 | NUR ---
weaned from oxygen pt was 93% on RA
--- NOTE | 2016-04-24 15:24 | NUR ---
Social Work Initial Assessment D: EMR Reviewed. See initial Assessment. Pt is a 71Y old female admitted for Left Hip Fx. Insurance is [employer] [facility] and Medicare. PCP is Dr. Marks. Readmission score is 1/8-Low. SHANNON met with Pt and Pt's spouse and son at bedside, SW role explained. Pt lives at home with her spouse and son in [place] where she remains independent. Pt does not use any DME and continues to drive. Pt has no HH/SNF history. Pt also denies LTC insurance or VA. Pt is POD #1. PT worked with Pt this morning. Pt only ambulating 4ft. PT discussed possible inpt rehab but Pt and family seem to be hesitant with this plan. Pt has strong family support and will always have either spouse or son at home to provide assistance. SW has complete Rx for FWW and placed on chart for Ortho signature. Pt's family will obtain bath bench and bedside commode as these are private pay. SW will fax prescription over to [facility] once signed and family agrees to pick it up. 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 Choice list given. Pt preference is for [facility]. Access given. SHANNON contacted [facility] [employer] [facility] and provided referral. Based on Pt's anticipated discharge of (POD#3), [facility] will do their best to open with Pt on Saturday but may be unavailable until Saturday. SHANNON will follow for Pt's continued progress with PT and PT discharge recommendation. SW following. A: Pt who is independent at baseline P: Pt is POD #1. PT worked with Pt this morning. Pt only ambulating 4ft. PT discussed possible inpt rehab but Pt and family seem to be hesitant with this plan. Pt has strong family support and will always have either spouse or son at home to provide assistance. SW has complete Rx for FWW and placed on chart for Ortho signature. Pt's family will obtain bath bench and bedside commode as these are private pay. SHANNON will fax prescription over to [facility] once signed and family agrees to pick it up. 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 Choice list given. Pt preference is for [facility]. Access given. [facility] and provided referral. Based on Pt's anticipated discharge of (POD#3), [facility] will do their best to open with Pt on Saturday but may be unavailable until Saturday. SHANNON will follow for Pt's continued progress with PT and PT discharge recommendation. SHANNON following. Addendum: 04/24/16 at 1538 by FAUSTINO LIZAMA Amended: Links added.
[2016-04-24 15:33] VITALS: BP 102/64; PULSE 85; RESP 20; O2SAT 94
--- NOTE | 2016-04-24 15:51 | NUR ---
Evaluation completed. Please go to "Notes" then click on "Assessments and Notes" (bottom left corner of screen). Then select appropriate discipline tab on top of screen.
--- NOTE | 2016-04-24 17:50 | PCM.PNMED ---
Subjective Date of Service Apr 24, 2016 Subjective denies any other issues/complaints. says did well with PT today. Exam Vital Signs Vital Sign - Last Date Time Temp Pulse Resp B/P Pulse Ox O2 Delivery O2 Flow Rate FiO2 04/24/16 15:37 Supplement Oxygen 04/24/16 15:33 36.0 85 20 102/64 94 04/24/16 06:01 2.00 Intake and Output 04/23/16 04/23/16 04/24/16 Cumulative From/Thru 15:00 23:00 07:00 04/22/16 10:44 - 04/24/16 06:49 Intake Total 800 ml 660 ml 1355 ml 5881 ml Output Total 100 ml 530 ml 450 ml 2180 ml Balance 700 ml 130 ml 905 ml 3701 ml Intake Oral 560 ml 200 ml 1360 ml IV Total 800 ml 100 ml 1155 ml 4521 ml Output Urine Total 100 ml 410 ml 450 ml 2060 ml Estimated Blood Loss 120 ml 120 ml # Bowel Movements 0 Exam General: Alert, Cooperative, No Acute Distress Eyes: Scleral Anicteric Mouth: Mucous Membr Moist/[place] Neck: Supple Chest & Lungs: Chest Wall Normal, Clear to auscultation bilat Cardiovascular: Regular Rate/Rhythm Abdomen: Non-tender, Non-distended, Normoactive bowel tones, Soft Extremities: No cyanosis/clubbing/edema bilat Neurological: Grossly Neurologically Intact, Normal Speech IVs and Medications Medications Reviewed: Medications were reviewed in detail Lab and Diagnostics Result Diagram: 04/24/16 0630 04/23/16 0605 X-Rays, CTs and MRIs Chest x-ray unremarkable Left hip x-ray reveals an intertrochanteric fracture of the femur. Assessment & Plan 71-year-old female with history of HTN and hypothyroidism who was cleaning her driveway. 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 She injured her left hip was unable to get up. # Acute ground-level fall with resulting acute left femur intertrochanteric fracture. poa - post Left hip closed reduction intramedullary nailing on 04/23/16 - appreciate ortho consult. will f/u w/ recs - c/w supportive care # Transient positional vertigo, prior to admit. Resolved - PT post surgery # Hypertension, essential, chronic. stable - c/w home dose Atenolol - hold HCTZ for now and resume in next day or so pending BP - Hydralazine prn # Hypothyroidism. chronic - c/w home med # Depression. chronic. stable - c/w home dose Wellbutrin Dispo: 2-3 days VTE Prophylaxis: Other (Xarelto 10mg QD x35 days) VTE Mechanical Devices: Intermittant Pneumatic CD Resuscitation Status: CPR: Attempt Resuscitation Quoc Mayer Apr 24, 2016 17:50
[2016-04-24 20:24] VITALS: BP 106/66; PULSE 84; RESP 20; O2SAT 89
--- NOTE | 2016-04-25 00:18 | NUR ---
PAIN; Pain rx given at h.s. with relief. Dsg c/d/i. Alert and oriented.
[2016-04-25 05:46] VITALS: BP 133/76; PULSE 96; RESP 18; O2SAT 90
--- NOTE | 2016-04-25 06:14 | NUR ---
ACTIVITY; lloyd d/henny approx.0300 per pt request. Up to void per walker/history department chair toe touch.
[2016-04-25] MEDS: Senna-Docusate 8.6-50 mg Tablet PO SCH ×2 (08:49→20:06)
[2016-04-25] MEDS: buPROPion SR 150 mg ER12 Tablet PO SCH ×2 (08:49→18:24)
--- NOTE | 2016-04-25 09:42 | PCM.PNORTH ---
Subjective Date of Service: Apr 25, 2016 Visit Information: Reason for Visit Lt Hip Fx Surgery/Surgery Date Post-Op Day # Date of Admission: Apr 22, 2016 at 13:07 Hospital Day # Subjective Found patient alert and awake and sitting on the edge of the bed comfortably. No complaints of pain at this time. Discussed patient's weightbearing status and clarified that currently her weightbearing status is 25% weightbearing of the left lower extremity. Patient indicates she has been performing toe touch weightbearing which I assured her was appropriate. Patient has gone to the bathroom with her wheeled walker and is mobile within the room. I have encouraged her to participate with formal physical therapy today with the stipulation of her weightbearing status. Patient's son is in the room and seems to be affecting her care and discharge plans. She was indicated that she wants to go to a inpatient rehabilitation upon discharge. I have advised the son that this would be costly and he has assured me that this is not a problem. As well I have advised him that there may be delay in achieving a spot at an inpatient rehabilitation and that there may have to be interim plans made such as penitentiary facility or home with home health. I have advised patient's son to speak with social worker masters regarding these issues. Postop General: No Complaints, No Shortness of Breath, No Chest Pain Pain Management: PO Objective Exam Objective Orientation: Alert and oriented 3 and pleasant. Dressing: Interoperative dressing clean dry and intact. Wound: Wound is in good condition with no erythema, no drainage and no focal swelling. Compartments: Thigh and calf are soft and nontender. Mobility/sensation: Toe wiggle and sensation are intact in left lower extremity distally. Patel: Absent Drain: Absent Gait: Gait 4 feet with physical therapy on postop day 1, 04/24/2016. Vital Signs and I/O Vital Sign - Last Date Time Temp Pulse Resp B/P Pulse Ox O2 Delivery O2 Flow Rate FiO2 04/25/16 05:46 37.1 96 18 133/76 90 Room Air 04/24/16 06:01 2.00 Intake and Output 04/24/16 04/24/16 04/25/16 Cumulative From/Thru 15:00 23:00 07:00 04/22/16 10:44 - 04/24/16 18:40 Intake Total 1640 ml 7521 ml Output Total 400 ml 2580 ml Balance 1240 ml 4941 ml Intake Oral 1640 ml 3000 ml IV Total 4521 ml Output Urine Total 400 ml 2460 ml Estimated Blood Loss 120 ml # Bowel Movements 0 Result Diagram: 04/24/16 0630 04/23/16 0605 General Appearance: Alert, Oriented X3, Cooperative, No Acute Distress Extremities: No Compartment Syndrom Noted, Thigh & Calf Soft/Nontender Postop Sensory Motor: Distal Motor Intact, Movement in Toes, Distal Sensation Intact SURGICAL WOUND : Incision General Appearance: [place], No Direct Observation Activity: Activity per PT, Ambulate with PT (25% weightbearing on the left lower extremity using a front wheeled walker. ) Catheters: None Assessment & Plan Plan Postop day # 2 from left hip IM nail placement on 04/23/[address] Randhawa. Weight bearing status: 25% weightbearing on the left lower extremity. Mobility aid: Front-wheeled walker Immobilization: None Precautions: Weightbearing precautions as above. Physical therapy: Continue formal physical therapy for mobility, gait and safety. Patient and family anticipating discharge to inpatient rehabilitation facility. Pain control: Continue by mouth pain control only. DVT prophylaxis: Continue Zarelto 10 mg daily 35 days postop for DVT prophylaxis. Wound care: Keep surgical wounds clean dry and covered until seen in office in 2 weeks. Infectious DZ: None Patel: Absent Dressing: Interoperative dressing is changed today to [place] type dressing with an strand for ventilation. Wounds are in good condition. Drain: Absent Nursin-week follow-up: Follow-up in 2 weeks at [facility] orthopedic clinic with mid-level provider for wound check and suture removal with left two-view femur x-rays on arrival. Weightbearing may be advanced to 50% weightbearing at the left lower extremity if patient is able to tolerate this. Wound may be wet for bathing and hygiene at this time. Avoid soaking the wound in a bathtub or hot tub or pool. 6-week follow-up: Follow-up in 6 weeks at [facility] orthopedic clinic with Dr. Randhawa with left two-view femur x-rays on arrival. Orthopedics thanks hospitalist service for their help in the medical management of this patient. Discharge plan: Patient and son are anticipating discharge to inpatient rehabilitation solely on postop day #3, 04/26/2016. I have discussed with patient and her son that this may not be possible based on room availability and timing. I have suggested alternatives such as home with home health or discharge to penitentiary facility as an interim plan until her room at an inpatient rehabilitation solely becomes available. VTE Prophylaxis: SCDs, Other (Xarelto 10mg QD x35 days) Resuscitation Status: CPR: Attempt Resuscitation Davy Mendez PA-C Apr 25, 2016 09:42
--- NOTE | 2016-04-25 10:51 | NUR ---
OT daily note available in EMR
--- NOTE | 2016-04-25 11:39 | NUR ---
Called and spoke with Diana at [facility] inpatient rehab and she is aware fax is coming through in real time and they have to complete entire process to see if patient meets criteria regardless if patient wants to pay privately. Alejandra is also there today and she is going to start right away. They will have to review get MD approval and insurance denial or acceptance before moving forward. Diana is also aware we are looking for urgent review and concrete answers for family and patient for what comes next. Updated QA SOFTWARE TEST ENGINEER and QA SOFTWARE TEST ENGINEER Batch Roller Operator about this case.
--- NOTE | 2016-04-25 13:10 | NUR ---
Social Work Continued Discharge Planning: SW conducted discharge planning update. SW spoke to patient and son at bedside to discuss discharge plan. Therapy recommending inpt rehab. Patient states being in agreement to placement at [facility] inpt rehab program. Patient states that if BCBS doesn't authorize, family to pay privately for inpt rehab arrangements. SW greenhouse assistant to send referral to [facility] for possible acceptance. SW to follow to determine acceptance status. PLAN: Inpt rehab at [facility], pending acceptance. Insurance auth vs private pay. SW to follow Maryjane PRECIADO Addendum: 04/25/16 at 1529 by NATALIE LIZAMA Per inpt rehab rep [place], agency will attempt possible auth for inpt rehab. If denied, agency aware of private pay options. Inpt rehab to follow up with SHANNON in the morning to determine BCBS auth vs private pay. Maryjane PRECIADO
[2016-04-25 14:45] VITALS: BP 104/68; PULSE 77; RESP 18; O2SAT 93
--- NOTE | 2016-04-25 17:00 | PCM.PNMED ---
Subjective Date of Service Apr 25, 2016 Subjective denies any other issues/complaints. says did well with PT today. Exam Vital Signs Vital Sign - Last Date Time Temp Pulse Resp B/P Pulse Ox O2 Delivery O2 Flow Rate FiO2 04/25/16 15:10 Room Air 04/25/16 14:45 36.5 77 18 104/68 93 04/24/16 06:01 2.00 Intake and Output 04/24/16 04/24/16 04/25/16 Cumulative From/Thru 15:00 23:00 07:00 04/22/16 10:44 - 04/24/16 18:40 Intake Total 1640 ml 7521 ml Output Total 400 ml 2580 ml Balance 1240 ml 4941 ml Intake Oral 1640 ml 3000 ml IV Total 4521 ml Output Urine Total 400 ml 2460 ml Estimated Blood Loss 120 ml # Bowel Movements 0 Exam General: Alert, Cooperative, No Acute Distress Eyes: Scleral Anicteric Mouth: Mucous Membr Moist/[place] Neck: Supple Chest & Lungs: Chest Wall Normal, Clear to auscultation bilat Cardiovascular: Regular Rate/Rhythm Abdomen: Non-tender, Non-distended, Normoactive bowel tones, Soft Extremities: No cyanosis/clubbing/edema bilat Neurological: Grossly Neurologically Intact, Normal Speech IVs and Medications Medications Reviewed: Medications were reviewed in detail Lab and Diagnostics Result Diagram: 04/24/16 0630 04/23/16 0605 X-Rays, CTs and MRIs Chest x-ray unremarkable Left hip x-ray reveals an intertrochanteric fracture of the femur. Assessment & Plan 71-year-old female with history of HTN and hypothyroidism who was cleaning her driveway. 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 She injured her left hip was unable to get up. # Acute ground-level fall with resulting acute left femur intertrochanteric fracture. poa - post Left hip closed reduction intramedullary nailing on 04/23/16 - appreciate ortho consult. will f/u w/ recs - c/w supportive care # Transient positional vertigo, prior to admit. Resolved - PT post surgery # Hypertension, essential, chronic. stable - c/w home dose Atenolol - continue to hold HCTZ for now and resume in next day or so pending BP - Hydralazine prn # Hypothyroidism. chronic - c/w home med # Depression. chronic. stable - c/w home dose Wellbutrin Dispo: likely SNF in 1-2 days VTE Prophylaxis: SCDs, Other (Xarelto 10mg QD x35 days) VTE Mechanical Devices: Intermittant Pneumatic CD Resuscitation Status: CPR: Attempt Resuscitation Time spent 25 min Quoc Mayer Apr 25, 2016 17:00
--- NOTE | 2016-04-25 17:09 | NUR ---
Bowels Pt states she has not had bowel movement since Saturday. Pt received MOM this am by toney RN, and has received scheduled stool softeners this am. PRN miralax administered this evening. Will monitor for results and continue to treat with scheduled and additional prn medications.
[2016-04-25] MEDS: Polyethylene Glycol (PEG) 17 Gm Powder PO PRN (17:59)
[2016-04-25 20:16] VITALS: BP 118/72; PULSE 78; RESP 18; O2SAT 94
[2016-04-26 04:52] VITALS: BP 116/72; PULSE 72; RESP 16; O2SAT 93
--- NOTE | 2016-04-26 06:45 | NUR ---
Activity Up with 1PA FWW multiple times throughout shift to bathroom. Tolerating well with exception to increased hip pain with activity that is resolved with rest and prn pain rx.
[2016-04-26] MEDS ORDERED: OXYC5TAB72 PO (09:50)
[2016-04-26] MEDS ORDERED: RIVA10TA PO (09:50)
[2016-04-26] MEDS: buPROPion SR 150 mg ER12 Tablet PO SCH ×2 (09:54→17:29)
[2016-04-26] MEDS: Senna-Docusate 8.6-50 mg Tablet PO SCH ×2 (09:54→19:56)
--- NOTE | 2016-04-26 09:55 | PCM.DIMED ---
Discharge Instructions Date of Service Apr 26, 2016 Dates of Hospitalization Apr 22, 2016 at 13:07 Discharge Diagnosis Discharge Diagnosis # Acute ground-level fall with resulting acute left femur intertrochanteric fracture. - post Left hip closed reduction intramedullary nailing on 04/23/16 # Transient positional vertigo, prior to admit. Resolved # Hypertension, essential, chronic. stable # Hypothyroidism. chronic # Depression. chronic. stable Diet Low fat, Low Sodium, Heart Healthy Activity Other (per physical therapy) Patient Instructions Wound care: Keep surgical wounds clean dry and covered until seen in office in 2 weeks. Wound may be wet for bathing and hygiene at this time. Avoid soaking the wound in a bathtub or hot tub or pool. Weightbearing may be advanced to 50% weightbearing at the left lower extremity if patient is able to tolerate this. Follow-up plan May followup with primary care provider in about one week. 2-week follow-up: Follow-up in 2 weeks at [facility] orthopedic clinic with mid-level provider for wound check and suture removal with left two-view femur x-rays on arrival. 6-week follow-up: Follow-up in 6 weeks at [facility] orthopedic clinic with Dr. Randhawa with left two-view femur x-rays on arrival. [address] [id number] Follow-up Provider: Eric Randhawa MD Follow-up with PCP in: 6 weeks Provider: May Marks MD Follow-up in: 1 week Quoc Mayer Apr 26, 2016 09:55
[2016-04-26] MEDS: Polyethylene Glycol (PEG) 17 Gm Powder PO PRN (10:07)
--- NOTE | 2016-04-26 11:01 | PCM.DIORTH ---
Ortho Discharge Instruction Date of Service: Apr 26, 2016 Dates of Hospitalization Date of Hospital Admission Apr 22, 2016 at 13:07 Providers Admitting Physician: Saurabh Jefferson MD Primary Care Physician: May Marks MD Attending Physician: Saurabh Jefferson MD Activity Discharge Activity-General: Try not to overdue, Be up and about, Ice incision 3 -5 time/day for 20min Right Lower Extremity: Weight Bearing as tolerated Left Lower Extremity: Toe-Touch Weight Bearing Discharge Assist Device: Front Wheeled Walker Dressing and Incisional Care Discharge Dressing Care: Keep dressing clean, dry & intact (x2 weeks) Discharge Hygiene: May shower (With dressing covered) Additional Instructions Discharge Instructions Weightbearing: Toe touch weightbearing with front-wheeled walker DVT prophylaxis:Xarelto 10 mg daily 35 days Physical therapy for transfers, progressive ambulation, strengthening Wound care: Keep incision covered until 2 week follow up Analgesia: Continue oral pain management Follow up in 2 weeks with a PA for would check and xrays then follow up in [address] Randhawa. Nurys MurryC Apr 26, 2016 11:00
--- NOTE | 2016-04-26 11:18 | NUR ---
"Social Work Continued Discharge Planning: SHANNON acknowledged order for discharge. Plan is inpt rehab at [facility] in rehab. SHANNON spoke to inpt rehab rep Annika who states that patient accepted pending auth from [facility]. Per rep, if [employer] unable to accept discussion with program director/traffic director made and patient will not be accepted despite family abilities to pay privately. Rep states that after further review, acceptance with [employer] denial will result in ethical issues if there is no need for inpt rehab. At this time, [facility] in rehab will continue to push auth and notify SW with update. SHANNON spoke to patient son who was made aware and updated. Per patient son, alternative options is home with HHC services and DME for walker. Patient HHC choice as any in network provider. Choice as [facility] and any DME provider. SHANNON spoke to [facility] rep who states that patient insurance accepted. SW provided access to Bev. SW to consult MD for face to face, if inpt rehab unable to accept. SHANNON psych assistant to work on DME delivery arrangements. SW to follow. PLAN: Inpt rehab vs home with HHC/DME via [facility] (access provided|face to face pending). SHANNON to follow to determine inpt rehab decision. Maryjane PRECIADO Addendum: 04/26/16 at 1636 by NATALIE LIZAMA SHANNON spoke to inpt rehab and no acceptance at this time. Rehab center still awaiting inpt rehab decision. consulted regarding above. MD to hold discharge until inpt rehab decision obtained. SHANNON arranged HHC [facility] and to arrange services 24-48hrs following discharge. Face to face provided to Derrell. SW to follow. PLAN: Inpt rehab vs home with HHC/DME via [facility] (access provided|face to face pending). SW to follow to determine inpt rehab decision. Maryjane PRECIADO"
[2016-04-26 12:09] VITALS: BP 128/73; PULSE 77; RESP 16; O2SAT 96
--- NOTE | 2016-04-26 16:04 | PCM.DC.MED ---
Discharge Summary Date of Service Apr 26, 2016 Dates of Hospitalization Date of Hospital Admission Apr 22, 2016 at 13:07 Date of Discharge: Apr 26, 2016 Providers: Admitting Physician: Saurabh Jefferson MD Primary Care Physician: May Marks MD Attending Physician: Saurabh Jefferson MD Diagnosis at Time of Discharge Diagnosis at Time of Discharge # Acute ground-level fall with resulting acute left femur intertrochanteric fracture. - post Left hip closed reduction intramedullary nailing on 04/23/16 # Transient positional vertigo, prior to admit. Resolved # Hypertension, essential, chronic. stable # Hypothyroidism. chronic # Depression. chronic. stable Consultations 1. Ortho Procedures XRay, CTs & MRIs Date of Service: 04/22/16 1102 PROCEDURE: X-RAY LEFT HIP COMPLETE, MINIMUM TWO VIEWS ([id number]) IMPRESSION: Intertrochanteric fracture of the Left femur Dictated by: Zoran Schmitz M.D. on 04/22/2016 at 12:05 Approved by: Zoran Schmitz M.D. on 04/22/2016 at 12:05 - Invasive Procedures Orthopedic Operative Report Date of Service: Apr 23, 2016 Pre Operative Diagnosis Left hip fracture Post Operative Diagnosis Left hip fracture Procedure Left hip closed reduction intramedullary nailing Surgeon Surgeon: Eric Randhawa Assistants: Nurys Murry Indication for Procedure Left hip fracture Findings Left Intertrochanteric hip fracture with subtrochanteric extension Details of Procedure Eric Randhawa MD Apr 23, 2016 15:52 <Electronically signed by Eric Randhawa MD> 04/23/16 1552 Brief History 71-year-old female with history of HTN and hypothyroidism who was cleaning her driveway. She bent over to pick remover a rock became vertiginous and then fell over. She injured her left hip was unable to get up. Hospital Course # Acute ground-level fall with resulting acute left femur intertrochanteric fracture. poa - post Left hip closed reduction intramedullary nailing on 04/23/16 - appreciate ortho consult. will f/u w/ recs # Transient positional vertigo, prior to admit. Resolved - PT post surgery # Hypertension, essential, chronic. stable - c/w home dose Atenolol - continue to hold HCTZ given BP stable off of it. # Hypothyroidism. chronic - c/w home med # Depression. chronic. stable - c/w home dose Wellbutrin by day of d/c lungs CTA bilat. Exam Vital Signs (Last) Date Time Temp Pulse Resp B/P Pulse Ox O2 Delivery O2 Flow Rate FiO2 04/26/16 12:09 36.4 77 16 128/73 96 Room Air 04/24/16 06:01 2.00 Test 04/22/16 12:30 04/22/16 14:15 04/22/16 14:23 04/23/16 06:05 Magnesium Level 2.1mg/dL (1.6-2.6) Hold Drake Top Tube Received (Received) Urine Color Yellow (YELLOW) Urine Appearance Clear (CLEAR,HAZY) Urine pH 5.5 (5.0-8.0) Urine Specific [place] 1.020 (1.003-1.035) Urine Protein Negativemg/dL (NEG,TRACE) Urine Glucose (UA) Negativemg/dL (NEGATIVE) Urine Ketones Negativemg/dL (NEGATIVE) Urine Occult Blood Trace (NEGATIVE) Urine Nitrite Negative (NEGATIVE) Urine Bilirubin Negative (NEGATIVE) Urine Urobilinogen Normalmg/dL (NORMAL) Urine Leukocyte Esterase Negative (NEGATIVE) Urine RBC 0-2/hpf (0-2) Urine WBC 0-5/hpf (0-5) Urine Epithelial Cells Occasional/hpf (NONE-MOD) Urine Crystals None seen (NONE SEEN) Urine Bacteria None/hpf (NONE-FEW) Urine Hyaline Casts None/lpf (NONE) Urine Granular Casts None seen (NONE SEEN) Urine Waxy Casts None seen (NONE SEEN) Urine Red Blood Cell Casts None seen (NONE SEEN) Urine White Blood Cell Casts None seen (NONE SEEN) Urine Mucus None seen (None Seen) Urine Trichomonas None seen (NONE SEEN) Urine Yeast None (NONE SEEN) Urinalysis Comment None Urine Culture Reflexed Not indicated Hold Urine Received (Received) Sodium Level 137mEq/L (134-144) Potassium Level 3.8mEq/L (3.5-5.2) Chloride Level 100mEq/L (97-108) Carbon Dioxide Level 26mmol/L (18-29) Blood Urea Nitrogen 15mg/dL (8-27) Creatinine 0.79mg/dL (0.57-1.00) Estimat Glomerular Filtration Rate 103mL/min (>59) Glucose Level 109mg/dL (60-99) Calcium Level 8.5mg/dL (8.5-10.1) Total Bilirubin 0.5mg/dL (0.0-1.2) Aspartate Amino Transf (AST/SGOT) 14U/L (0-50) Alanine Aminotransferase (ALT/SGPT) 15U/L (0-32) Alkaline Phosphatase 53U/L (25-165) Total Protein 5.5g/dL (6.4-8.4) Albumin 3.4g/dL (3.4-5.0) Test 04/24/16 06:30 White Blood Count 7.6th/mm3 (3.8-10.1) Red Blood Count 3.55mil/mm3 (3.90-5.20) Hemoglobin 10.8g/dL (12.0-15.6) Hematocrit 32.0% (35.0-46.0) Mean Corpuscular Volume 90.1fL (81-100) Mean Corpuscular Hemoglobin 30.4pg (27.0-35.0) Mean Corpuscular Hemoglobin Concent 33.8% (32.0-37.0) Red Cell Distribution Width 12.6% (12.3-15.4) Platelet Count 166bil/L (150-400) Neutrophils (%) (Auto) 75.6% (40-74) Lymphocytes (%) (Auto) 16.1% (14-46) Monocytes (%) (Auto) 8.1% (4-12) Eosinophils (%) (Auto) 0% (0-5) Basophils (%) (Auto) 0.1% (0-3) Discharge Medications Discharge Medications Aspirin (Aspirin) 81 Mg Tablet 81 MG PO DAILY (Reported) Atenolol (Atenolol) 25 Mg Tablet 12.5 MG PO DAILY (Reported) Atorvastatin (Lipitor) 20 Mg Tablet 20 MG PO DAILY (Reported) Bupropion ER (Wellbutrin SR) 150 Mg Tablet.er 150 MG PO BID (Reported) Levothyroxine (Levothyroxine) 100 Mcg Tablet 100 MCG PO DAILY (Reported) Multivitamin (Multi Vitamin Daily) 1 Each Tablet 1 EACH PO DAILY (Reported) Rivaroxaban (Xarelto) 10 Mg Tablet 10 MG PO DAILY Prescribed by: LITA RIDDLE MD As needed oxyCODONE (oxyCODONE) 5 Mg Tablet 5-10 MG PO Q4H PRN PRN For Severe Pain Prescribed by: LITA RIDDLE MD Miscellaneous Medications Calcium Carbonate (Calcium) 600 Mg Tablet 600 MG PO (Reported) Cholecalciferol (Vitamin D3) (Vitamin D3) 1,000 Unit Tab.chew 1,000 UNIT PO ( Reported) Followup Plan Disposition: inpatient rehab Follow-up plan May followup with primary care provider in about one week. 2-week follow-up: Follow-up in 2 weeks at [facility] orthopedic clinic with mid-level provider for wound check and suture removal with left two-view femur x-rays on arrival. 6-week follow-up: Follow-up in 6 weeks at [facility] orthopedic clinic with Dr. Randhawa with left two-view femur x-rays on arrival. [address] [address] Discharge Diet: Low fat, Low Sodium, Heart Healthy Discharge Activity: Other (per physical therapy) Patient Instructions Wound care: Keep surgical wounds clean dry and covered until seen in office in 2 weeks. Wound may be wet for bathing and hygiene at this time. Avoid soaking the wound in a bathtub or hot tub or pool. Weightbearing may be advanced to 50% weightbearing at the left lower extremity if patient is able to tolerate this. Follow-up Provider: Eric Randhawa MD Follow-up with PCP in: 6 weeks Provider: May Marks MD Follow-up in: 1 week Time spent 35 min copies to: May Marks MD; Eric Randhawa MD, Masoud Apr 26, 2016 16:04
--- NOTE | 2016-04-26 17:55 | PCM.PNORTH ---
Subjective Date of Service: Apr 26, 2016 Visit Information: Reason for Visit Lt Hip Fx Surgery/Surgery Date Post-Op Day # 3 Date of Admission: Apr 22, 2016 at 13:07 Hospital Day # Subjective Patient and son present upon exam. Patient states she is having little pain until movement however she states even when she is moving her hip, the pain is tolerable. She is complaining more of thigh pain than hip pain which is due to the long IM nail. No concerns. Postop General: No Complaints, No Shortness of Breath, No Chest Pain Pain Management: PO Objective Exam Objective Patient sitting up in chair Vital Signs and I/O Vital Sign - Last Date Time Temp Pulse Resp B/P Pulse Ox O2 Delivery O2 Flow Rate FiO2 04/26/16 16:10 Room Air 04/26/16 12:09 36.4 77 16 128/73 96 04/24/16 06:01 2.00 Intake and Output 04/25/16 04/25/16 04/26/16 Cumulative From/Thru 15:00 23:00 07:00 04/22/16 10:44 - 04/26/16 06:07 Intake Total 300 ml 720 ml 300 ml 8841 ml Output Total 1200 ml 250 ml 4030 ml Balance -900 ml 470 ml 300 ml 4811 ml Intake Oral 300 ml 720 ml 300 ml 4320 ml IV Total 0 ml 4521 ml Output Urine Total 1200 ml 250 ml 3910 ml Estimated Blood Loss 120 ml # Voids 3 1 4 # Bowel Movements 0 0 0 Result Diagram: 04/24/16 0630 04/23/16 0605 General Appearance: Alert, Oriented X3, Cooperative, No Acute Distress Extremities: Distal Pulses Palpable, No Compartment Syndrom Noted Postop Sensory Motor: Distal Motor Intact, Movement in Toes, Distal Sensation Intact, NVI Distally SURGICAL WOUND : Wound Location/Description [place] dressing clean, dry and intact. Incision General Appearance: Evin, No Direct Observation Activity: Activity per PT, Ambulate with PT (25% weightbearing on the left lower extremity using a front wheeled walker. ) Catheters: None Assessment & Plan Impression POD#3 left hip IM nail placement Problems: Plan Weightbearing: Toe touch weightbearing with front-wheeled walker DVT prophylaxis:Xarelto 10 mg daily 35 days Physical therapy for transfers, progressive ambulation, strengthening Wound care: Keep incision covered until 2 week follow up Analgesia: Continue oral pain management Follow up in 2 weeks with a PA for would check and xrays then follow up in [address] Randhawa. VTE Prophylaxis: SCDs, Other (Xarelto 10mg QD x35 days) Resuscitation Status: CPR: Attempt Resuscitation Nurys Murry PA-C Apr 26, 2016 17:55
--- NOTE | 2016-04-26 18:38 | NUR ---
GI Pt stating at start of shift the need to move bowels; stated I have taken everything but nothing has come out yet. Pt made aware that Suppository and Enema available, pt refused at that time. Received AM stool softeners. Still no results. At 1800, pt accepting of suppository after another unsuccessful BM. At 1915, pt in BR and stating success. States feeling better. Pain has been tolerable enough throughout the shift - calls when she needs pain medicaiton. Care continues.
[2016-04-26 18:45] VITALS: BP 136/78; PULSE 74; RESP 16; O2SAT 95
[2016-04-26 19:59] VITALS: BP 118/71; PULSE 79; RESP 16; O2SAT 97
--- NOTE | 2016-04-26 21:59 | NUR ---
BM 04/26/16 At start of shift patient was in bathroom, and was able to have a large bowel movement. Patient and day shift nurse state that a suppository was given today in the late afternoon. Patient states relief of discomfort. Patient is A&OX3, and pleasant. Will continue to care, and continue Q1 hour checks.
[2016-04-27 05:21] VITALS: BP 122/70; PULSE 71; RESP 16; O2SAT 94
[2016-04-27] MEDS: Senna-Docusate 8.6-50 mg Tablet PO SCH (08:43)
[2016-04-27] MEDS: buPROPion SR 150 mg ER12 Tablet PO SCH (08:50)
--- NOTE | 2016-04-27 10:06 | NUR ---
Social Work Continued Discharge Planning: SW spoke to inpt rehab rep Kiley who states that auth obtained from [facility]. SW faxed discharge paperwork to [phone]. Rn to call report to in rehab, Rn Sourav. Rn updated. SW assistant manager/embalmer arranged transport via [employer] for hot die picker at 10:15am. Patient and family aware and in agreement to discharge plan. No other needs identified at this time. SW to follow. PLAN: Inpt rehab at [facility] via [employer] for hot die picker at 10:15am. Auth obtained from [facility]. SW to follow Maryjane PRECIADO
--- NOTE | 2016-04-27 10:51 | NUR ---
Discharge Orders for discharge were received. The patient was made aware of the plans and was agreeable to the discharge. The patient was given her scripts and information regarding her diagnosis, treatment, follow up instructions, signs and symptoms to be aware of, dressing care, weight bearing instructions and activity limitations. The patient signified understanding of this information and was dressed in her own clothing. The patients belongings were gathered and removed from the room by family members. The patient then ambulated into a wheelchair and was wheeled to the main entrance where she entered a private transportation cabulance. At the time of discharge the patient was alert and oriented, with no complaint of out of control pain or nausea, dressing site intact. Report called to receiving therapy center.
== END 2016-04-27 10:14 | DRG 536 ==
LOC: SED 10:44 → EDUNIT# 10:44 → EDBD 10:44 → OSC 13:07
PROVIDERS: ADMIT Hospitalist; ATTEND Hospitalist
PROC: 0SSB34Z Reposition Left Hip Joint with Internal Fixation Device, Percutaneous Approach (ICD-10-PCS; principal; 2016-04-23 13:00)
DX: S72.142A Displaced intertrochanteric fracture of left femur, initial encounter for closed fracture (principal); I10 Essential (primary) hypertension; E03.9 Hypothyroidism, unspecified; F32.9 Major depressive disorder, single episode, unspecified; W18.39XA Other fall on same level, initial encounter; Y92.014 Private driveway to single-family (private) house as the place of occurrence of the external cause; F17.210 Nicotine dependence, cigarettes, uncomplicated